=== PATIENT | male | born 1950 | race Caucasian/White ===

== ENCOUNTER → 2020-02-29 | Outpatient (CLI) | payer MEDICARE, OTHER ==
[~2020-02-29] MED LIST: BARIUM SUSPENSION 2.1% (VANILLA SILQ) 450 ML PO ONE; CATHETER FLUSH 10 ML SYR IV PRN; HOLD METFORMIN - RECEIVED CONTRAST 20 ML VIAL IV SCH; IOHEXOL 350 MG/ML 100 ML (OMNIPAQUE 350) VIAL IV ONE; NS 100 ML (IVPB) BAG IV ONE
--- NOTE | 2020-02-29 10:44 | Diagnostic Imaging Report ---
PROCEDURE: CT abdomen with and without contrast. TECHNIQUE: Multiple contiguous axial CT images of the abdomen were obtained prior to and after intravenous administration of iodinated contrast. Auto Exposure Controls were utilized during the CT exam to meet ALARA standards for radiation dose reduction. INDICATION: Liver mass. There are no prior studies available for comparison. Reportedly the patient did have a previous exam which indicated the presence of a liver mass. Neither that study nor the report of that exam is available for comparison at this time however. The precontrast images of the liver failed to show any sign of a mass. Following administration of intravenous contrast, there was an area of enhancement in the right lobe of the liver near the junction of segments seven and eight. This area of enhancement measures 1.7 x 1.2 x 1.9 cm in maximum transverse longitudinal and AP dimensions. This finding is not evident on the 10-minute delayed sequence however. Consequently I suspect that the area of enhancement is related to a hemangioma. There is no other enhancing lesion within the liver. The spleen, pancreas, adrenals, gallbladder, aorta and inferior vena cava show no sign of an acute abnormality. There is a 1.5 x 2.1 cm low density lesion associated with the left adrenal gland. This has Hounsfield units in the -20 range and I suspect that this is a benign process such as an adrenal adenoma. Both kidneys do show excretion of the contrast. There is no evidence for a solid renal mass but there is a 2.2 cm cyst along the posterior aspect of the left kidney. There is also a small subcentimeter cyst within the superior pole of the left kidney. The stomach is not well distended and difficult to assess. There does appear to be a small hiatal hernia. There is no mass or free fluid collection noted. The sections through the lower abdomen do suggest that there is diverticulosis of the sigmoid colon. There is no distortion of the pericolonic fat to suggest acute diverticulitis however. Only a small portion of the sigmoid colon was visualized however. The lung bases are clear. Coronary artery calcifications are also noted although the heart size seems to be within normal limits. The bone windows show no evidence for a fracture or for a destructive lesion. There is dense calcification of the anterior longitudinal ligament in the lower thoracic spine. IMPRESSION: 1. There is a small enhancing mass in the right lobe of liver near the junction of segments seven and eight. This has the enhancement characteristics of a hemangioma. There is no other abnormal enhancement involving the liver. 2. There is no acute abnormality of the abdomen. 3. The low density nodule associated with the left adrenal gland is most likely a benign process such as an adrenal adenoma. 4. There is diverticulosis of the sigmoid colon without evidence for acute diverticulitis. 5. The heart size is within normal limits. There are coronary artery calcifications evident. 6. If the previous exam or the report from the prior exam is available it would be helpful for comparison. Dictated by: Dictated on workstation # [id number]
== END ==
LOC: RAD FS 08:51
PROVIDERS: ATTEND Nurse Practitioner
DX: K76.89 Other specified diseases of liver (principal); K57.32 Diverticulitis of large intestine without perforation or abscess without bleeding; K73.9 Chronic hepatitis, unspecified; E27.8 Other specified disorders of adrenal gland
CPT/HCPCS: 74170

== ENCOUNTER → 2020-02-29 | Outpatient (CLI) | payer MEDICARE, OTHER ==
[2020-02-29 09:09] LABS: BUN/CREATININE RATIO 13; CALCIUM 9.2 MG/DL (8.5-10.1); CARBON DIOXIDE 29 MMOL/L (21-32); CHLORIDE 102 MMOL/L (98-107); CREATININE SERUM 0.82 MG/DL (0.60-1.30); GFR ESTIMATED > 60; GLUCOSE 120 MG/DL (70-105); POTASSIUM 3.7 MMOL/L (3.6-5.0); SODIUM 141 MMOL/L (135-145)
[2020-02-29 09:10] LABS: ALANINE AMINOTRANSFERASE 52 U/L (0-55); ALKALINE PHOSPHATASE 89 U/L (40-136); BILIRUBIN,TOTAL 0.6 MG/DL (0.1-1.0); TOTAL PROTEIN 6.6 GM/DL (6.4-8.2)
[2020-02-29 21:41] LABS: HEPATITIS C ANTIBODY C Non-Reactive (Non-Reactive)
== END ==
LOC: LAB FS 08:14
PROVIDERS: ATTEND Nurse Practitioner
DX: K76.9 Liver disease, unspecified (principal)
CPT/HCPCS: 36415; 80053; 80074

== ENCOUNTER → 2022-06-01 | Outpatient (CLI) | payer MEDICARE, OTHER ==
[~2022-06-01] MED LIST changes: -BARIUM SUSPENSION 2.1% (VANILLA SILQ) 450 ML PO ONE
[2022-06-01 13:33] LABS: BASOPHILS # (AUTO) 0.1 10^3/uL (0.0-0.1); BASOPHILS % (AUTO) 1 % (0-10); EOSINOPHILS # (AUTO) 0.2 10^3/uL (0.0-0.3); EOSINOPHILS % (AUTO) 2 % (0-10); HEMATOCRIT 47 % (40-54); HEMOGLOBIN 16.2 g/dL (13.3-17.7); LYMPHOCYTES # (AUTO) 2.6 10^3/uL (1.0-4.0); LYMPHOCYTES % (AUTO) 24 % (12-44); MEAN CORPUSCULAR HEMOGLOBIN 31 pg (25-34); MEAN CORPUSCULAR HGB CONC 35 g/dL (32-36); MEAN CORPUSCULAR VOLUME 90 fL (80-99); MEAN PLATELET VOLUME 8.7 fL (9.0-12.2); MONOCYTES # (AUTO) 0.7 10^3/uL (0.0-1.0); MONOCYTES % (AUTO) 7 % (0-12); NEUTROPHILS # (AUTO) 7.1 10^3/uL (1.8-7.8); NEUTROPHILS % (AUTO) 66 % (42-75); PLATELET COUNT 189 10^3/uL (130-400); WHITE BLOOD COUNT 10.7 10^3/uL (4.3-11.0)
[2022-06-01 14:00] LABS: CREATININE SERUM 0.9 MG/DL (0.60-1.30); POTASSIUM 3.7 MMOL/L (3.6-5.0)
[2022-06-01 14:01] LABS: ALBUMIN 3.8 GM/DL (3.2-4.5); BILIRUBIN,TOTAL 0.7 MG/DL (0.1-1.0); CALCIUM 8.8 MG/DL (8.5-10.1); TOTAL PROTEIN 6.8 GM/DL (6.4-8.2)
--- NOTE | 2022-06-01 15:25 | Diagnostic Imaging Report ---
INDICATION: Enlarged liver. TECHNIQUE: Multiple contiguous axial images were obtained through the abdomen after the administration of intravenous contrast. Auto Exposure Controls were utilized during the CT exam to meet ALARA standards for radiation dose reduction. FINDINGS: CT of the abdomen obtained and compared with 02/29/2020. The visualized portions of the lung bases are clear. There were no pleural fluid collections. There is no free intraperitoneal air. The liver shows no focal lesion. A small probable hemangioma seen on 02/29/2020 is not visualized on this study, this may be related to bolus timing. No solid mass is seen. The spleen, pancreas, and right adrenal gland appear normal. The left adrenal gland shows a nodular density measuring 2.0 cm, this appears stable compared to the prior study. There is no retroperitoneal mass. There is an exophytic cyst off the left kidney which appears unchanged. Visualized bowel loops appear unremarkable. IMPRESSION: No focal liver lesion. The probable small hemangioma seen on the previous study is not visualized on this study, probably secondary to difference in bolus timing. There is a stable left adrenal nodule, compatible with adenoma. There is a stable exophytic cyst off the left kidney. Dictated by: Dictated on workstation # [id number]
== END ==
LOC: LAB FS 13:12
PROVIDERS: ATTEND Nurse Practitioner
DX: E27.9 Disorder of adrenal gland, unspecified (principal); N28.1 Cyst of kidney, acquired; E78.5 Hyperlipidemia, unspecified; E55.9 Vitamin D deficiency, unspecified; I10 Essential (primary) hypertension
CPT/HCPCS: 36415; 74160; 80053; 80061; 82306; 85025; Q9967